=== PATIENT | female | born 1955 | race Caucasian/White ===

== ENCOUNTER 2020-10-04 09:57 | Emergency (ER) | payer MEDICARE, OTHER ==
[2020-10-04] MEDS ORDERED: Dextrose 5%-0.9% NaCl 1,000 ML IV SCH (10:30)
--- NOTE | 2020-10-04 10:33 | EDM.PDOC ---
ED HPI GENERAL MEDICAL PROBLEM - General Chief Complaint: General Stated Complaint: POSS COVID/CONFUSION Time Seen by Provider: 10/04/20 10:16 Source of Information: Reports: Patient History Limitations: Reports: Altered Mental Status ( mildy confused? ), Other (appears mildy confused. ) - History of Present Illness INITIAL COMMENTS - FREE TEXT/NARRATIVE: 65-year-old female presents to the ED with chief complaint of being confused according to her . No recent falls or closed head injuries. Apparently her has COVID-19 and was likely diagnosed 9 days ago. She had a Covid test done as an outpatient on Wednesday this week but has not received the results. She has a mild cough producing some whitish sputum. Mildly decreased appetite no nausea vomiting or diarrhea. Mild nasal congestion with no loss of sense of taste or smell. Generalized weakness but no big fever or chills reported. reports that she seems confused and cannot remember what she was going to do i.e. impaired short-term memory. A typed up Noe that he was diagnosed with COVID-19 on September 24. He reports his has had a persisting cough is her main symptom negative fever and oxygen sats were been around 95% at home but on 01 October the change was noted with noticeable confusion, somnolence, difficulty communicating, and loss of appetite. On the she slept most of been morning until mid afternoon and seemed somewhat better thereafter. Yesterday she was awake and conversed well until mid afternoon but after a nap was very confused and had difficulty with speaking and comprehension and noted balance disturbance. Uncertain will be due to hypoactive delirium secondary to COVID-19 illness. Onset: Gradual Onset Date: 10/03/20 Duration: Hour(s):, Getting Worse Location: Reports: Chest (Cough producing whitish sputum), Generalized ( reports that she seems to be confused and cannot member what she is going to accomplish or try and do. She does have some signs and symptoms of COVID-19 illness with cough with productive white sputum. No high fever or chills. O2 sats were anywhere from 91 to 94% when I was in the room. She reports that she has been eating fair has no nausea vomiting or diarrhea mild nasal congestion. No loss of sense of taste or smell yet.) Quality: Reports: Other (Confused and weak.) Severity: Moderate Improves with: Reports: None Worsens with: Reports: None Context: Reports: Other (Filiberto he is recurrence). Denies: Activity, Exercise, Lifting, Sick Contact, Trauma Associated Symptoms: Reports: Confusion, Cough, cough w sputum, Malaise (With mild white sputum production), Shortness of Breath, Weakness (Mild). 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 Of note has a seizure disorder and is on valproic acid.) - Related Data Allergies Allergy/AdvReac Type Severity Reaction Status Date / Time No Known Allergies Allergy Verified 08/15/19 11:48 Home Meds: Home Meds Bimatoprost [LUMIGAN 0.01% Ophth Soln] 0.01 drop EYEBOTH DAILY 10/04/20 [History] Cefdinir [Omnicef] 300 mg PO BID #10 cap 10/04/20 [Rx] Divalproex Sodium [Depakote] 1,500 mg PO DAILY 10/04/20 [History] Levothyroxine Sodium [Synthroid] 25 mcg PO DAILY 10/04/20 [History] Oxybutynin Chloride [Ditropan Xl] 10 mg PO DAILY 10/04/20 [History] Past Medical History HEENT History: Reports: Glaucoma Genitourinary History: Reports: Urinary Incontinence (Mainly urge component. He is on oxybutynin.) Neurological History: Reports: Seizure Endocrine/Metabolic History: Reports: Hypothyroidism (He is on levothyroxine supplementation) Social & Family History - Tobacco Use Tobacco Use Status *Q: Never Tobacco User - Alcohol Use Alcohol Use History: No ED ROS GENERAL - Review of Systems Review Of Systems: See Below Constitutional: Reports: Malaise, Weakness, Fatigue, Decreased Appetite. Denies: Fever, Chills HEENT: Reports: Glasses Respiratory: Reports: Shortness of Breath, Cough. Denies: Wheezing, Pleuritic Chest Pain, Hemoptysis Cardiovascular: Reports: Lightheadedness. Denies: Chest Pain (Mild cough with white sputum production), Blood Pressure Problem, Claudication, Dyspnea on Exertion, Edema, Orthopnea, Palpitations Endocrine: Reports: Fatigue GI/Abdominal: Reports: Decreased Appetite. Denies: Diarrhea, Nausea, Vomiting : Reports: Urgency Musculoskeletal: Reports: Joint Pain (Knees hips low back) Skin: Reports: No Symptoms ( and neck at times) Neurological: Reports: Confusion (Reports she is confused with particularly impaired short-term memory has trouble remembering where she has been lately), Seizure (Has a known seizure disorder taking valproic acid 1500 mg/day.). Denies: Dizziness, Syncope Psychiatric: Reports: No Symptoms ( Apparently no recent changes in the dosages.) Hematologic/Lymphatic: Reports: No Symptoms Immunologic: Reports: No Symptoms ED EXAM, GENERAL - Physical Exam Exam: See Below Exam Limited By: Other (Temperature is 37.1 heart rate 70 respiratory to 14 BP 11/24/1966 2 sats are currently 97%.) General Appearance: Alert, WD/WN, Anxious, Mild Distress, Other Eye Exam: Bilateral Eye: Normal Inspection (No scleral icterus or blepharal pallor), PERRL Throat/Mouth: Other (Tongue is) Head: Atraumatic ( very mildly dry.), Normocephalic Neck: Normal Inspection, Supple (Outward signs of any head or facial trauma.), Non-Tender, Full Range of Motion. No: Carotid Bruit, Limited Range of Motion, Lymphadenopathy (L), Lymphadenopathy (R) Respiratory/Chest: No Respiratory Distress, No Accessory Muscle Use, Rales (Few rales left base that seem to clear with coughing.) Cardiovascular: Normal Peripheral Pulses, Regular Rate, Rhythm, No Edema, No Gallop, No Murmur, No Rub Peripheral Pulses: 2+: Carotid (L), Carotid (R), Posterior Tibial (L), Posterior Tibial (R), Dorsalis Pedis (L), Dorsalis Pedis (R) GI/Abdominal: Normal Bowel Sounds, Soft, Non-Tender, No Organomegaly, No Mass, Pelvis Stable, Other (Midline infraumbilical surgical scar she reports from a .) Back Exam: Normal Inspection, Full Range of Motion. No: CVA Tenderness (L), CVA Tenderness (R) Extremities: Normal Inspection, Normal Range of Motion, Non-Tender, No Pedal Edema Neurological: Alert, Oriented, CN II-XII Intact, No Motor/Sensory Deficits, Other (Patient is seems to be forgetful and is has mildly impaired cognitive function.). No: Normal Cognition Psychiatric: Anxious (Mildly anxious.) Skin Exam: Warm, Dry, Intact, Normal Color, No Rash #1 Interpretation EKG Date: 10/04/20 Time: 11:26 Rhythm: NSR Rate (Beats/Min): 90 Jackson: Normal P-Wave: Present QRS: Other (Early R wave care transition mgr V1. Consider right ventricular hypertrophy.) ST-T: Other (T wave flattening V3 and 3 nonspecific finding) QT: Normal EKG Interpretation Comments: Borderline ECG Course - Vital Signs Last Recorded V/S: Last Vital Signs Temp 37.1 C 10/04/20 10:18 Pulse 70 10/04/20 10:18 Resp 14 10/04/20 10:18 BP 110/65 10/04/20 10:18 Pulse Ox 100 10/04/20 10:18 - Orders/Labs/Meds Orders: Active Orders 24 hr Category Date Time Status EKG Documentation Completion [RC] STAT Care 10/04/20 10:30 Active EKG Documentation Completion [RC] STAT Care 10/04/20 10:32 Active CULTURE BLOOD [BC] Stat Lab 10/04/20 11:08 Received CULTURE BLOOD [BC] Stat Lab 10/04/20 11:15 Received CULTURE URINE [RM] Stat Lab 10/04/20 12:41 Ordered Dextrose 5%-0.9% NaCl [Dextrose 5%-Normal Saline] 1,000 Med 10/04/20 10:30 Active ml IV ASDIRECTED Blood Culture x2 Reflex Set [OM.PC] Stat Oth 10/04/20 10:32 Ordered Medication Orders Dextrose/Sodium Chloride (Dextrose 5%-Normal Saline) 1,000 mls @ 250 mls/hr IV ASDIRECTED SABRINA Last Admin: 10/04/20 11:14 Dose: 250 mls/hr Documented by: EMMANUEL Labs: Laboratory Tests 10/04/20 10/04/20 10/04/20 Range/Units 11:08 11:14 11:14 WBC (3.98-10.04) K/mm3 RBC (3.98-5.22) M/mm3 Hgb (11.2-15.7) gm/dl Hct (34.1-44.9) % MCV (79.4-94.8) fl MCH (25.6-32.2) pg MCHC (32.2-35.5) g/dl RDW Std Deviation (36.4-46.3) fL Plt Count (182-369) K/mm3 MPV (9.4-12.3) fl Neut % (Auto) (34.0-71.1) % Lymph % (Auto) (19.3-51.7) % Crook % (Auto) (4.7-12.5) % Eos % (Auto) (0.7-5.8) Baso % (Auto) (0.1-1.2) % Neut # (Auto) (1.56-6.13) K/mm3 Lymph # (Auto) (1.18-3.74) K/mm3 Crook # (Auto) (0.24-0.36) K/mm3 Eos # (Auto) (0.04-0.36) K/mm3 Baso # (Auto) (0.01-0.08) K/mm3 Manual Slide Review PT (9.7-12.0) SECONDS INR APTT (21.7-31.4) SECONDS D-Dimer, Quantitative (0.19-0.50) mg/L Sodium (136-145) mEq/L Potassium (3.5-5.1) mEq/L Chloride (98-107) mEq/L Carbon Dioxide (21-32) mEq/L Anion Gap (5-15) BUN (7-18) mg/dL Creatinine (0.55-1.02) mg/dL Est Cr Clr Drug Dosing mL/min Estimated GFR (MDRD) (>60) mL/min BUN/Creatinine Ratio (14-18) Glucose (80-115) mg/dL POC Glucose (80-115) mg/dL Lactic Acid (0.4-2.0) mmol/L Calcium (8.5-10.1) mg/dL Magnesium (1.8-2.4) mg/dl Ferritin (8-252) ng/ml Total Bilirubin (0.2-1.0) mg/dL AST (15-37) U/L ALT (14-59) U/L Alkaline Phosphatase (46-116) U/L Lactate Dehydrogenase (81-234) U/L Troponin I (0.00-0.056) ng/mL C-Reactive Protein (<1.0) mg/dL NT-Pro-B Natriuret Pep (0-125) pg/mL Total Protein (6.4-8.2) g/dl Albumin (3.4-5.0) g/dl Globulin gm/dL Albumin/Globulin Ratio (1-2) Urine Color Dark yellow (Yellow) Urine Appearance Slt cloudy H (Clear) Urine pH 6.0 (5.0-8.0) Ur Specific [place] > or = 1.030 (1.005-1.030) Urine Protein 1+ H (Negative) Urine Glucose (UA) Negative (Negative) Urine Ketones 1+ H (Negative) Urine Occult Blood 2+ H (Negative) Urine Nitrite Negative (Negative) Urine Bilirubin 1+ H (Negative) Urine Urobilinogen 2.0 H (0.2-1.0) Ur Leukocyte Esterase 2+ H (Negative) U Hyaline Cast (Auto) 0-5 (0-5) /lpf Urine RBC 5-10 H (0-5) /hpf Urine WBC 10-20 H (0-5) /hpf Urine WBC Clumps Few (NOT SEEN) /hpf Ur Epithelial Cells 0-5 (0-5) /hpf Urine Bacteria Moderate H (FEW) /hpf Urine Mucus Moderate H (FEW) /hpf Valproic Acid 144.8 H* (50.0-100.0) ug/mL Ketones (0.0-0.3) mM SARS-CoV-2 RNA (JOE) Positive H (NEGATIVE) 10/04/20 10/04/20 10/04/20 Range/Units 11:15 11:15 11:15 WBC 3.64 L (3.98-10.04) K/mm3 RBC 4.08 (3.98-5.22) M/mm3 Hgb 12.9 (11.2-15.7) gm/dl Hct 39.9 (34.1-44.9) % MCV 97.8 H (79.4-94.8) fl MCH 31.6 (25.6-32.2) pg MCHC 32.3 (32.2-35.5) g/dl RDW Std Deviation 46.0 (36.4-46.3) fL Plt Count 140 L (182-369) K/mm3 MPV 10.0 (9.4-12.3) fl Neut % (Auto) 63.4 (34.0-71.1) % Lymph % (Auto) 13.2 L (19.3-51.7) % Crook % (Auto) 21.4 H (4.7-12.5) % Eos % (Auto) 0.3 L (0.7-5.8) Baso % (Auto) 0.3 (0.1-1.2) % Neut # (Auto) 2.31 (1.56-6.13) K/mm3 Lymph # (Auto) 0.48 L (1.18-3.74) K/mm3 Crook # (Auto) 0.78 H (0.24-0.36) K/mm3 Eos # (Auto) 0.01 L (0.04-0.36) K/mm3 Baso # (Auto) 0.01 (0.01-0.08) K/mm3 Manual Slide Review Abnormal smear PT 11.4 (9.7-12.0) SECONDS INR 1.07 APTT 30.5 (21.7-31.4) SECONDS D-Dimer, Quantitative (0.19-0.50) mg/L Sodium 136 (136-145) mEq/L Potassium 4.2 (3.5-5.1) mEq/L Chloride 101 (98-107) mEq/L Carbon Dioxide 30 (21-32) mEq/L Anion Gap 9.2 (5-15) BUN 27 H (7-18) mg/dL Creatinine 1.0 (0.55-1.02) mg/dL Est Cr Clr Drug Dosing 45.16 mL/min Estimated GFR (MDRD) 55 (>60) mL/min BUN/Creatinine Ratio 27.0 H (14-18) Glucose 84 (80-115) mg/dL POC Glucose (80-115) mg/dL Lactic Acid (0.4-2.0) mmol/L Calcium 8.8 (8.5-10.1) mg/dL Magnesium 2.5 H (1.8-2.4) mg/dl Ferritin (8-252) ng/ml Total Bilirubin 0.7 (0.2-1.0) mg/dL AST 27 (15-37) U/L ALT 20 (14-59) U/L Alkaline Phosphatase 42 L (46-116) U/L Lactate Dehydrogenase 288 H (81-234) U/L Troponin I 0.018 (0.00-0.056) ng/mL C-Reactive Protein 5.4 H* (<1.0) mg/dL NT-Pro-B Natriuret Pep (0-125) pg/mL Total Protein 6.8 (6.4-8.2) g/dl Albumin 2.8 L (3.4-5.0) g/dl Globulin 4.0 gm/dL Albumin/Globulin Ratio 0.7 L (1-2) Urine Color (Yellow) Urine Appearance (Clear) Urine pH (5.0-8.0) Ur Specific [place] (1.005-1.030) Urine Protein (Negative) Urine Glucose (UA) (Negative) Urine Ketones (Negative) Urine Occult Blood (Negative) Urine Nitrite (Negative) Urine Bilirubin (Negative) Urine Urobilinogen (0.2-1.0) Ur Leukocyte Esterase (Negative) U Hyaline Cast (Auto) (0-5) /lpf Urine RBC (0-5) /hpf Urine WBC (0-5) /hpf Urine WBC Clumps (NOT SEEN) /hpf Ur Epithelial Cells (0-5) /hpf Urine Bacteria (FEW) /hpf Urine Mucus (FEW) /hpf Valproic Acid (50.0-100.0) ug/mL Ketones (0.0-0.3) mM SARS-CoV-2 RNA (JOE) (NEGATIVE) 10/04/20 10/04/20 10/04/20 Range/Units 11:15 11:15 11:15 WBC (3.98-10.04) K/mm3 RBC (3.98-5.22) M/mm3 Hgb (11.2-15.7) gm/dl Hct (34.1-44.9) % MCV (79.4-94.8) fl MCH (25.6-32.2) pg MCHC (32.2-35.5) g/dl RDW Std Deviation (36.4-46.3) fL Plt Count (182-369) K/mm3 MPV (9.4-12.3) fl Neut % (Auto) (34.0-71.1) % Lymph % (Auto) (19.3-51.7) % Crook % (Auto) (4.7-12.5) % Eos % (Auto) (0.7-5.8) Baso % (Auto) (0.1-1.2) % Neut # (Auto) (1.56-6.13) K/mm3 Lymph # (Auto) (1.18-3.74) K/mm3 Crook # (Auto) (0.24-0.36) K/mm3 Eos # (Auto) (0.04-0.36) K/mm3 Baso # (Auto) (0.01-0.08) K/mm3 Manual Slide Review PT (9.7-12.0) SECONDS INR APTT (21.7-31.4) SECONDS D-Dimer, Quantitative 0.75 H (0.19-0.50) mg/L Sodium (136-145) mEq/L Potassium (3.5-5.1) mEq/L Chloride (98-107) mEq/L Carbon Dioxide (21-32) mEq/L Anion Gap (5-15) BUN (7-18) mg/dL Creatinine (0.55-1.02) mg/dL Est Cr Clr Drug Dosing mL/min Estimated GFR (MDRD) (>60) mL/min BUN/Creatinine Ratio (14-18) Glucose (80-115) mg/dL POC Glucose (80-115) mg/dL Lactic Acid 1.8 (0.4-2.0) mmol/L Calcium (8.5-10.1) mg/dL Magnesium (1.8-2.4) mg/dl Ferritin 1493 H (8-252) ng/ml Total Bilirubin (0.2-1.0) mg/dL AST (15-37) U/L ALT (14-59) U/L Alkaline Phosphatase (46-116) U/L Lactate Dehydrogenase (81-234) U/L Troponin I (0.00-0.056) ng/mL C-Reactive Protein (<1.0) mg/dL NT-Pro-B Natriuret Pep (0-125) pg/mL Total Protein (6.4-8.2) g/dl Albumin (3.4-5.0) g/dl Globulin gm/dL Albumin/Globulin Ratio (1-2) Urine Color (Yellow) Urine Appearance (Clear) Urine pH (5.0-8.0) Ur Specific [place] (1.005-1.030) Urine Protein (Negative) Urine Glucose (UA) (Negative) Urine Ketones (Negative) Urine Occult Blood (Negative) Urine Nitrite (Negative) Urine Bilirubin (Negative) Urine Urobilinogen (0.2-1.0) Ur Leukocyte Esterase (Negative) U Hyaline Cast (Auto) (0-5) /lpf Urine RBC (0-5) /hpf Urine WBC (0-5) /hpf Urine WBC Clumps (NOT SEEN) /hpf Ur Epithelial Cells (0-5) /hpf Urine Bacteria (FEW) /hpf Urine Mucus (FEW) /hpf Valproic Acid (50.0-100.0) ug/mL Ketones (0.0-0.3) mM SARS-CoV-2 RNA (JOE) (NEGATIVE) 10/04/20 10/04/20 10/04/20 Range/Units 11:15 11:15 14:41 WBC (3.98-10.04) K/mm3 RBC (3.98-5.22) M/mm3 Hgb (11.2-15.7) gm/dl Hct (34.1-44.9) % MCV (79.4-94.8) fl MCH (25.6-32.2) pg MCHC (32.2-35.5) g/dl RDW Std Deviation (36.4-46.3) fL Plt Count (182-369) K/mm3 MPV (9.4-12.3) fl Neut % (Auto) (34.0-71.1) % Lymph % (Auto) (19.3-51.7) % Crook % (Auto) (4.7-12.5) % Eos % (Auto) (0.7-5.8) Baso % (Auto) (0.1-1.2) % Neut # (Auto) (1.56-6.13) K/mm3 Lymph # (Auto) (1.18-3.74) K/mm3 Crook # (Auto) (0.24-0.36) K/mm3 Eos # (Auto) (0.04-0.36) K/mm3 Baso # (Auto) (0.01-0.08) K/mm3 Manual Slide Review PT (9.7-12.0) SECONDS INR APTT (21.7-31.4) SECONDS D-Dimer, Quantitative (0.19-0.50) mg/L Sodium (136-145) mEq/L Potassium (3.5-5.1) mEq/L Chloride (98-107) mEq/L Carbon Dioxide (21-32) mEq/L Anion Gap (5-15) BUN (7-18) mg/dL Creatinine (0.55-1.02) mg/dL Est Cr Clr Drug Dosing mL/min Estimated GFR (MDRD) (>60) mL/min BUN/Creatinine Ratio (14-18) Glucose (80-115) mg/dL POC Glucose 84 (80-115) mg/dL Lactic Acid (0.4-2.0) mmol/L Calcium (8.5-10.1) mg/dL Magnesium (1.8-2.4) mg/dl Ferritin (8-252) ng/ml Total Bilirubin (0.2-1.0) mg/dL AST (15-37) U/L ALT (14-59) U/L Alkaline Phosphatase (46-116) U/L Lactate Dehydrogenase (81-234) U/L Troponin I (0.00-0.056) ng/mL C-Reactive Protein (<1.0) mg/dL NT-Pro-B Natriuret Pep 823 H (0-125) pg/mL Total Protein (6.4-8.2) g/dl Albumin (3.4-5.0) g/dl Globulin gm/dL Albumin/Globulin Ratio (1-2) Urine Color (Yellow) Urine Appearance (Clear) Urine pH (5.0-8.0) Ur Specific [place] (1.005-1.030) Urine Protein (Negative) Urine Glucose (UA) (Negative) Urine Ketones (Negative) Urine Occult Blood (Negative) Urine Nitrite (Negative) Urine Bilirubin (Negative) Urine Urobilinogen (0.2-1.0) Ur Leukocyte Esterase (Negative) U Hyaline Cast (Auto) (0-5) /lpf Urine RBC (0-5) /hpf Urine WBC (0-5) /hpf Urine WBC Clumps (NOT SEEN) /hpf Ur Epithelial Cells (0-5) /hpf Urine Bacteria (FEW) /hpf Urine Mucus (FEW) /hpf Valproic Acid (50.0-100.0) ug/mL Ketones 0.15 (0.0-0.3) mM SARS-CoV-2 RNA (JOE) (NEGATIVE) Meds: Medications Generic Name Dose Route Start Last Admin Trade Name Fredaniel PRN Reason Stop Dose Admin Dextrose/Sodium Chloride 1,000 mls @ 250 mls/hr 10/04/20 10:30 10/04/20 11:14 Dextrose 5%-Normal Saline IV 250 mls/hr ASDIRECTED SABRINA Administration Discontinued Medications Generic Name Dose Route Start Last Admin Trade Name Delanoq PRN Reason Stop Dose Admin Ceftriaxone Sodium 1 gm/ 100 mls @ 200 mls/hr 10/04/20 12:54 10/04/20 13:24 Sodium Chloride IV 10/04/20 13:23 200 mls/hr ONETIME ONE Administration Bamlanivimab 700 mg/ Sodium 200 mls @ 200 mls/hr 10/04/20 14:00 10/04/20 14:33 Chloride IV 10/04/20 14:59 200 mls/hr ONETIME ONE Administration Protocol - Radiology Interpretation Free Text/Narrative:: 65-year-old female presents to the ED at the request of her due to change in mental status. He indicates over the last 3 days she has had increased somnolence increased confusion and difficulty communicating. Associated loss of appetite. Improved after sleeping most of the day the last few days. Yesterday she had increased trouble speaking with comprehension problems and noted balance disturbance. It is strongly suspect that she has COVID-19 illness. Plan will be to repeat COVID-19 1 hour study in the ED. COVID-19 work-up and septic work-up to be done. She will also have CT head to rule out an central nervous system lesion. Vital signs otherwise are stable at this point time - Re-Assessments/Exams Free Text/Narrative Re-Assessment/Exam: 10/04/20 11:10 T head without contrast has been completed. It reveals advanced degenerative changes with ventriculomegaly very mild anterior horn encephalomalacia. Prominent sulci. Diffuse small vessel ischemic changes in both basal ganglia. No infarcts identified. No intracranial bleeding or mass- effect identified. Of note she has a Nghia coincidental finding of a nonobstructing calcified mass in the left mid ethmoid sinus measuring up to 0.9 cm. Chest x-ray done portably reveals normal cardiac silhouette. There is prominence of the right pulmonary artery infiltrates in both lower lobes compatible with viral pneumonia secondary to COVID-19 illness. Free Text/Narrative Re-Assessment/Exam: 10/04/20 12:04 White count is slightly low at 3.64 characteristic of viral infection. Differential shows 63.4% neutrophils. Hemoglobin is 12.9 with hematocrit of 39.9. MCV is elevated at 97.8. Platelet counts 140,000. PT is 11.4 with an INR of 1.07 PTT is 30.5 D-dimer is 0.75. Her valproic acid level came back markedly elevated 144.8. Therapeutic is 50-100. She is therefore valproic acid toxic which would account for some of her symptoms of confusion disorientation and ataxia. 10/04/20 12:41 Sodium is 136 with a potassium of 4.2. Chloride is 101 with a bicarb of 30. Anion gap is 9.2. BUN is 27 with a creatinine of 1.0. Estimated GFR is 55. BUN creatinine ratio is 27 indicating volume depletion. Glucose is 84 lactic acid 1.8. Calcium is 8.8 magnesium is slightly elevated at 2.5. Liver function is normal. LDH is pending troponin I is less than 0.018 C- reactive protein is 5.4 BNP is 823 total protein is 6.8 with an albumin fraction of 2.8. Urine is dark yellow in color 1+ proteinuria 1+ ketonuria 2+ occult blood 1+ bilirubin 2+ urobilinogen 2+ leukocyte esterase 5-10 RBCs 10-20 WBCs per high-power field with a few white cell clumps appreciated moderate urinary bacteria and moderate urine mucus. Serum ketones 0.15. COVID-19 screen positive. Urine culture will be ordered 10/04/20 12:53 I have spoken with the patient and the patient's and both are keen to pursue the monoclonal antibody therapy with bamlanivumab. I therefore added information about Bamlanivimad treatment for Kristina Rodriguez. I offered them the patient and caregiver EUA Bamlanivimad fact sheet to read and review. I stated the drug has been approved by an emergency use authorization process and has not been fully vetted by the FDA or approved at this time the patient meets the EUA requirements. I discussed there are other potential treatment options that are currently not FDA approved to treat COVID-19. Offered opportunity to ask questions and all questions were answered particularly with her . Patient is somewhat confused I believe due to valproic acid toxicity at this time he in particular voiced understanding and agreed to proceed with the treatment for his Kristina Rodriguez she will require Rocephin 1 g IV for urinary tract infection symptoms as well. She does recognize some dysuria and frequency. The other problem is her elevated serum valproic acid which is causing her to be ataxic and confused. This will simply have to be placed on hold for a couple of days and then reintroduced in a lower dose capacity. 10/04/20 14:01 I have spoken with the patient's primary care physician Dr. Prisca Ramsey and she indicates that the patient has not had a seizure for as long as she has known her. There has been some suggestions to try and wean h er off of her valproic acid but she has declined in the past. It is possible with recent weight loss that she has become toxic on current dosage. The plan will be to reduce her valproic acid to no medication for 2 days and then reintroduce it to 50 mg in the morning and 500 at bedtime which would be half of her current dose. 10/04/20 16:05: Patient is did not have any adverse reaction to the monoclonal antibody infusion. She will be discharged home in the care of her who will come and pick her up. Advised about reducing her valproic acid dose to half current dose. He will monitor her pulse symmetry at his home since he has been using one for himself post COVID-19 illness as well. To return if O2 sats remained 90% for greater than 2 hours. Discharged home on Omnicef 500 mg twice daily for 5 days to clear up urinary tract infection. Departure - Departure Time of Disposition: 16:10 Disposition: Home, Self-Care 01 Condition: Fair Clinical Impression: COVID-19 determined by clinical diagnostic criteria, Lower urinary tract infect ion Valproic acid toxicity Qualifiers: Encounter type: initial encounter Injury intent: accidental or unintentional Qualified Code(s): T42.6X1A - Poisoning by other antiepileptic and sedative- hypnotic drugs, accidental (unintentional), initial encounter - Discharge Information *PRESCRIPTION DRUG MONITORING PROGRAM REVIEWED*: Not Applicable *COPY OF PRESCRIPTION DRUG MONITORING REPORT IN PATIENT ANNEMARIE: Not Applicable Prescriptions: Cefdinir [Omnicef] 300 mg PO BID #10 cap Instructions: COVID-19 Referrals: PCP,None [Primary Care Provider] - Forms: ED Department Discharge Additional Instructions: Evaluation in the emergency room today in regards to generally feeling unwell with reported lapses of speech and poor memory i.e. cognitive impairment and also noted difficulty walking with ataxic gait similar to a drunk. Associated fever and productive cough with your known to be COVID-19 positive. You were proven to be COVID-19 positive today as well chest x-ray reveals bilateral viral pneumonia and lower lobes characteristic of what we have been seeing with all patients with Covid illness. You were treated with monoclonal antibodies intravenously in the emergency room today that will not usually allow the coronavirus to continue to spread within your body. You still may get sicker over the next week to 10 days. You would need to come back to the hospital if you have nausea vomiting uncontrolled diarrhea or your oxygen saturations stay around 90. Second problem identified was your seizure medication valproic acid is way too high in your bloodstream at 144.8. Therapeutic is 50-100. This is accounting for your impaired ability to think straight and your altered balance. Suggest taking no valproic acid for the next day and a half. I.e. none tonight and none tomorrow. After this he will need to start back at 250 mg in the morning which is a half of a 500 mg tablet and 500 mg tablet at bedtime this will control your seizures without causing toxicity. Third problem identified was a lower urinary tract infection and you received your first dose of antibiotics through the IV in the emergency room. This was called Rocephin. You will need to start an oral antibiotic called Omnicef 300 mg tablet twice daily for another 5 days starting tomorrow morning to fully clear up urinary tract infection. You are to make an appointment to see Dr. Ramsey after you are finished your quarantine from COVID-19 illness. This would be in approximately 11 more days. Sepsis Event Note (ED) - Focused Exam Vital Signs: Vital Signs Temp Pulse Resp BP Pulse Ox 10/04/20 10:18 37.1 C 70 14 110/65 100 - My Orders Last 24 Hours: My Active Orders 10/04/20 10:30 EKG Documentation Completion [RC] STAT Dextrose 5%-0.9% NaCl [Dextrose 5%-Normal Saline] 1,000 ml IV ASDIRECTED 10/04/20 10:32 EKG Documentation Completion [RC] STAT Blood Culture x2 Reflex Set [OM.PC] Stat 10/04/20 11:08 CULTURE BLOOD [BC] Stat 10/04/20 11:15 CULTURE BLOOD [BC] Stat 10/04/20 12:41 CULTURE URINE [RM] Stat - Assessment/Plan Last 24 Hours: My Active Orders 10/04/20 10:30 EKG Documentation Completion [RC] STAT Dextrose 5%-0.9% NaCl [Dextrose 5%-Normal Saline] 1,000 ml IV ASDIRECTED 10/04/20 10:32 EKG Documentation Completion [RC] STAT Blood Culture x2 Reflex Set [OM.PC] Stat 10/04/20 11:08 CULTURE BLOOD [BC] Stat 10/04/20 11:15 CULTURE BLOOD [BC] Stat 10/04/20 12:41 CULTURE URINE [RM] Stat
--- NOTE | 2020-10-04 11:08 | CT ---
PROCEDURE INFORMATION: Exam: CT Head Without Contrast Exam date and time: 10/04/2020 10:43 AM Age: 65 years old Clinical indication: Altered mental status/memory loss; Confusion or disorientation; Additional info: Impaired short-term memory of new onset along with confusion TECHNIQUE: Imaging protocol: Computed tomography of the head without contrast. Radiation optimization: All CT scans at this facility use at least one of these dose optimization techniques: automated exposure control; mA and/or kV adjustment per patient size (includes targeted exams where dose is matched to clinical indication); or iterative reconstruction. COMPARISON: No relevant prior studies available. FINDINGS: Brain: No mass, intracranial hemorrhage, or brain edema. No transcortical defect. Normal cerebellum and brainstem. Cerebral ventricles: No ventriculomegaly. Bones/joints: Normal. Paranasal sinuses: Nonobstructing calcified mass in the mid left ethmoid sinus is measures up to 0.9 cm. Mastoid air cells: Normal. Soft tissues: Unremarkable. IMPRESSION: 1. No acute intracranial abnormality or suspicious finding related to the brain. 2. Calcified left ethmoid sinus polyp. Thank you for allowing us to participate in the care of your patient. Dictated and Authenticated by: Edgar Najera MD 10/04/2020 12:06 PM Central Time ([place] & [place]) BASHIR
--- NOTE | 2020-10-04 11:11 | CR ---
PROCEDURE INFORMATION: Exam: XR Chest, 1 View Exam date and time: 10/04/2020 10:31 AM Age: 65 years old Clinical indication: Other: Confusion, hypoxia, suspect covid; Additional info: Impaired short-term memory of new onset along with confusion TECHNIQUE: Imaging protocol: XR of the chest Views: 1 view. COMPARISON: No relevant prior studies available. FINDINGS: Tubes, catheters and devices: Right implanted medication reservoir has an intact attached catheter that terminates in satisfactory position. Lungs: Patchy ground-glass opacification throughout the left lower lobe, also more peripheral than central and scattered throughout central portions of the right lower lobe. The upper lobes are emphysematous, right more so than left. Pleural space: Normal. Heart/Mediastinum: Normal heart and cardiomediastinal silhouette. Vasculature: Normal pulmonary vessel caliber. Normal aorta. Bones/joints: The bones are intact. IMPRESSION: Bilateral lower lobe infiltrates. Imaging features can be seen with COVID-19 pneumonia, though are nonspecific and can occur with a variety of infectious and noninfectious processes. (Reference: Stuart) References: Stuart Shelley, et al., [employer] Society of [place] Expert Consensus Statement on Reporting Chest CT Findings Related to COVID-19. Endorsed by the Society of [employer] Radiology, the [place] [employer], and [employer]. Published February 07, 2020. Thank you for allowing us to participate in the care of your patient. Dictated and Authenticated by: Edgar Najera MD 10/04/2020 12:08 PM Central Time ([place] & [place]) [facility]
[2020-10-04] MEDS ORDERED: cefTRIAXone 1 GM in Sodium Chloride 0.9% 100 ML IV ONE (12:54)
== END 2020-10-04 17:00 | disposition home or self-care (01) ==
LOC: JD.ED 09:57
DX: T42.6X1A Poisoning by other antiepileptic and sedative-hypnotic drugs, accidental (unintentional), initial encounter (principal); U07.1 COVID-19; R56.9 Unspecified convulsions; N39.0 Urinary tract infection, site not specified; E03.9 Hypothyroidism, unspecified; Z79.899 Other long term (current) drug therapy
CPT/HCPCS: 36415; 70450; 71045; 80053; 80164; 81001; 82009; 82728; 82962; 83605; 83615; 83735; 83880; 84484; 85025; 85379; 85610; 85730; 86140; 87040; 87086; 93005; 96365; 96367; 99285; J0696; J7042; J7050; U0002; 93010; 99284